=== PATIENT | male | born 1955 | race African-American/Black ===

== ENCOUNTER 2024-10-23 12:22 | Emergency (ER) | payer OTHER, SELFPAY ==
--- NOTE | ~2024-10-23 | CT_ITS ---
EXAMINATION: CT brain wo con DATE: 10/23/2024 13:51 INDICATION: Nonverbal patient post fall TECHNIQUE: Computed tomography (CT) of the head was performed without intravenous contrast. Sagittal and coronal reconstructions were performed. The mA was adjusted according to patient size. Iterative reconstruction technique was employed. The dose-length product was 605.33 mGy-cm. COMPARISON: None FINDINGS: Left frontal osteoma. No calvarial fracture. Old lacunar infarcts in the right thalamus and bilateral basal ganglia. No acute intracranial hemorrhage, acute infarction or abnormal extra axial fluid von ection. There is extensive scattered white matter hypoattenuation consistent with chronic small vesse l ischemic disease. Symmetric prominence of the sulci and ventricles consistent with moderate age-artur ropriate diffuse cerebral volume loss. No mass/mass effect. Changes of bilateral intraocular lens rep lacement. The orbits, paranasal sinuses and mastoid air cells are normal. IMPRESSION: 1. No fracture or acute intracranial process. 2. Small old lacunar infarcts at the right thalamus and bilateral basal ganglia. 3. Age-related changes including moderate diffuse volume loss and extensive white matter hypoattenuat ion consistent with chronic small vessel ischemic disease. Reviewed, dictated and finalized at location B. CIPAL [facility] JUDGE IMPRESSION: 1. No fracture or acute intracranial process. 2. Small old lacunar infarcts at the right thalamus and bilateral basal ganglia . 3. Age-related changes including moderate diffuse volume loss and extensive whi te matter hypoattenuation consistent with chronic small vessel ischemic disease .
--- NOTE | ~2024-10-23 | XR_ITS ---
EXAMINATION: XR hip LT 2V w AP pelvis DATE: 10/23/2024 13:08 INDICATION: Left hip and pelvis pain post fall TECHNIQUE: Anteroposterior view of the pelvis and anteroposterior and leg lateral views of the left h ip were obtained. COMPARISON: None. FINDINGS: Varus angulation at the bilateral proximal femurs without evident acute fracture which could represen t either sequela of old healed fractures more more likely positional artifact of a foreshortened appe arance resulting from imaging with the hips in flexion. No acute fractures identified. Mild right-nam ed and moderate left-sided hip osteoarthritis. Severe lower lumbar spondylosis. Ankylosis across the pubic symphysis. Surgical clip at the lateral proximal left thigh. IMPRESSION: 1. Artifactual appearance of various angulation at the bilateral proximal femurs resulting from patie nt contractures with the hips imaged in flexion. No evident acute fracture. 2. Degenerative changes including severe lumbar spondylosis and mild right-sided and moderate left-si ded hip osteoarthritis. Reviewed, dictated and finalized at location B. ET MARKER IMPRESSION: 1. Artifactual appearance of various angulation at the bilateral proximal femur s resulting from patient contractures with the hips imaged in flexion. No evide nt acute fracture. 2. Degenerative changes including severe lumbar spondylosis and mild right-side d and moderate left-sided hip osteoarthritis.
[2024-10-23 12:25] VITALS: BP 111/72; PULSE 68; RESP 16; TEMP 36.4; O2SAT 98
--- NOTE | 2024-10-23 14:07 | ED.GENADULT ---
HPI - General Adult General Chief complaint: Fall Stated complaint: fall from wheelchair Time Seen by Provider: 10/23/24 12:31 History of Present Illness HPI narrative: Patient is a 69-year-old male who presents ER after a fall from his wheelchair at the eye doctor. Patient cannot communicate due to CVA. He has a left AKA. He fell onto his left side. It is unknown if he struck his head. Patient is in no distress. Related Data Allergies Allergy/AdvReac Type Severity Reaction Status Date / Time No Known Allergies Allergy Verified 10/23/24 12:33 Review of Systems Review of Systems: ROS unobtainable: Yes unobtainable due to mental status PMFSH Past Medical History Medical History (Updated 10/23/24 @ 14:12 by Erasto Smith MD) History of CVA (cerebrovascular accident) Surgical History Surgical History (Updated 10/23/24 @ 14:09 by Erasto Smith MD) History of above-knee amputation Exam Narrative: GENERAL: Chronically ill-appearing, well-nourished, and in no acute distress. HEAD: Normocephalic, atraumatic. ENT: Mucous membranes moist. CHEST: Clear to auscultation. No respiratory distress. HEART: Regular rate and rhythm. Normal peripheral pulses. ABDOMEN: Soft, nontender, nondistended. EXTREMITIES: Left AKA without deformity or point tenderness. SKIN: Warm, dry, no rash. NEURO: Awake alert, unable to communicate. Course Course Emergency Course: No acute injury of hip/pelvis/head on imaging. Appropriate for discharge back to facility. Vital Signs Vital signs: Vital Signs Temperature 97.6 F 10/23/24 12:25 Pulse Rate 68 10/23/24 12:25 Respiratory Rate 16 10/23/24 12:25 Blood Pressure 111/72 10/23/24 12:25 Pulse Oximetry 98 10/23/24 12:25 Temperature 97.6 F 10/23/24 12:25 Pulse Rate 68 10/23/24 12:25 Respiratory Rate 16 10/23/24 12:25 Blood Pressure 111/72 10/23/24 12:25 Pulse Oximetry 98 10/23/24 12:25 Medical Decision Making Vital Signs Vital Signs: Vital Signs Temperature 97.6 F 10/23/24 12:25 Pulse Rate 68 10/23/24 12:25 Respiratory Rate 16 10/23/24 12:25 Blood Pressure 111/72 10/23/24 12:25 Pulse Oximetry 98 10/23/24 12:25 Temperature 97.6 F 10/23/24 12:25 Pulse Rate 68 10/23/24 12:25 Respiratory Rate 16 10/23/24 12:25 Blood Pressure 111/72 10/23/24 12:25 Pulse Oximetry 98 10/23/24 12:25 Imaging Data Radiologist's impression: ITS Impressions Hip/Pelvis X-Ray 10/23/24 13:15 IMPRESSION: 1. Artifactual appearance of various angulation at the bilateral proximal femurs resulting from patient contractures with the hips imaged in flexion. No evident acute fracture. 2. Degenerative changes including severe lumbar spondylosis and mild right-sided and moderate left-sided hip osteoarthritis. Head CT 10/23/24 13:54 IMPRESSION: 1. No fracture or acute intracranial process. 2. Small old lacunar infarcts at the right thalamus and bilateral basal ganglia. 3. Age-related changes including moderate diffuse volume loss and extensive white matter hypoattenuation consistent with chronic small vessel ischemic disease. Discharge Plan Discharge Clinical Impression: Accident due to mechanical fall without injury Patient Disposition: Home, Self-Care Condition: Stable Additional Instructions: Return ER if you have fever 100.4? F, you suffered a new injury, or you have additional concerns. Patient Language: Bengali Follow-up/Referrals: Regulo Salcedo MD [Primary Care Provider] - 1 Week
[2024-10-23 14:29] VITALS: BP 116/84; PULSE 69; RESP 17; TEMP 36.4; O2SAT 99
--- NOTE | 2024-10-23 15:14 | PC.NURSE ---
EMS arrives for patient.
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
--- OUTSIDE RECORDS SUMMARY | 2024-10-29 06:47 | XMS_ITS | Clinical Summary ---
Author Organization [facility] Address [address] [place] [address] Care Team Providers Care Developer Designer Name Role Phone Regulo Salcedo MD Primary Care Provider [phone] Allergies No known active allergies Medications atorvastatin [...] pain 12/01/2017 Alcohol use with uncomplicated intoxication (CMS /HCC) 08/17/2017 Fall 08/17/2017 Injury of head 08/17/2017 Medical History Medical History Date Comments Hypertension Stroke (HCC) Shortness of breath COPD (chronic obstructive pulmonary disease) (HC C) Social History Tobacco Use Types Packs/Day Years [...] week 04/12/2023 How often do you attend confucianist or adventist serv ices? Never 04/12/2023 Do you belong to any clubs o r organizations such as confucianist groups, unions, fraternal or athletic groups, or [...] place to sleep or slept in a correction (including now)? 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 Oxygen Saturation 98% 04/28/2024 11:20 AM CDT Inhaled Oxygen Concentration - - Weight 61.7 kg (136 lb) 02/06/2024 12:44 PM CDT Height 170.2 cm (5' 7 ) 02/06/2024 12:44 PM CDT Body Mass Index 21.3 02/06/2024 12:44 PM CDT Plan of Treatment Health Maintenance Due Date Last Done Comments Colon Cancer Screening-Colonoscopy 1955 Depression Screening 1955 Hepatitis C Screening 1955 Prostate Cancer Screening-PSA 1955 Pneumococcal vaccine 65+ (1 of 2 - PCV) 1961 DTaP/Tdap/Td Vaccine (1 - Tdap) 1966 Hepatitis B Screening 1973 Lung Cancer Screening 2005 Zoster Vaccine (1 of 2) 2005 Well Visit 65+ 2020 Fall Risk Assessment 04/16/2024 04/16/2023 Covid-19 Vaccine (2 - season) 06/07/202405/2022 Influenza Vaccine (#1) 2024 Abdominal Aortic Aneurysm (AAA) Screen Completed Procedures Procedure Name Priority Date/Time Associated Diagnosis [...] 12:57 PM - Electronically signed by ??Rainer DILL D: ??04/11/2023 12:57 PM T: Report ID: [id number] Reading Location: ??[id number] Procedure Note Rainer Hatch MD - 04/11/2023 [...] signed by Rainer DILL T: Report ID: [id number] Reading Location: [id number] Xochitl Bañuelos DO IMG CT PROCEDURES Final Result from Last 3 Months or Most Recently Relevant to Health Maintenance [place] [address] [place] [address] Advance Directives For more information, please contact: [phone] * Full Code (Latest Code Status on File) Date Activated Date Inactivated Comments 04/11/2023 3:30 PM 04/16/2023 8:28 PM Care Teams Developer Designer Relationship Specialty Start Date End Date Regulo Salcedo MD [address] [address] PCP - General Emergency Medicine 11/25/23
== END 2024-10-23 15:21 ==
PROVIDERS: Emergency Provider Emergency Medicine; PCP Hospitalist
DX: Z04.3 Encounter for examination and observation following other accident (principal); I69.919 Unspecified symptoms and signs involving cognitive functions following unspecified cerebrovascular disease; Z89.612 Acquired absence of left leg above knee; M47.816 Spondylosis without myelopathy or radiculopathy, lumbar region; M16.0 Bilateral primary osteoarthritis of hip; W05.0XXA Fall from non-moving wheelchair, initial encounter
CPT/HCPCS: 70450; 73502; 99284